=== PATIENT | female | born 1950 | race Caucasian/White ===

== ENCOUNTER 2018-11-14 15:40 | Emergency (ER) | payer OTHER, MEDICARE, MEDICAID, SELFPAY ==
[2018-11-14 15:43] VITALS: BP 115/67; PULSE 79; RESP 16; TEMP 37.2; O2SAT 99; BMI 20.7
--- NOTE | 2018-11-14 16:05 | RAD_ITS ---
STUDY: X-RAY CHEST REASON FOR EXAM: Female, 68 years old. Dehydration and altered mental status TECHNIQUE: AP portable COMPARISON: None. FINDINGS: Lungs are hyperinflated. There is a retrocardiac nodular density at left base measuring 1.8 x 1.5 cm. This appears relatively dense and likely represents granulomatous disease. There is no demonstrated pleural abnormality. Normal size heart. Normal mediastinum and devora. Normal visualized pulmonary arteries. Normal visualized aortic arch and descending thoracic aorta. Normal visualized thoracic spine. Normal visualized ribs, clavicles, and shoulders. There is no demonstrated abnormality of the visualized soft tissue structures of the upper abdomen. RAD/Chest 1 View (Portable) IMPRESSION: Mild hyperinflation. Left lower lobe nodule probable old granulomatous disease. No acute cardiopulmonary pathology Electronically Signed: North Jalloh MD at 16:32 EDT , Service support ,
[2018-11-14] MEDS: 0.9% Normal Saline 1,000 ML 1000 ML IV (17:10)
[2018-11-14] MEDS: Ondansetron 4 MG/2 ML Vial IV (17:11)
--- NOTE | 2018-11-14 17:21 | ED.DCSUM_ITS ---
History of Present Illness Chief Complaint: Nausea/Vomiting/Diarrhea Narrative: Patient presenting from the detention due to concern for dehydration and some confusion. 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 She is DNR comfort care. snf sent the patient in for evaluation due to some concern for the possibility of dehydration and states that she really has been well over the course of the last couple of days. Additional history was unable to be obtained, and the patient actually really was not complaining of any sort of complaints. Past Medical History - Allergies and Home Meds Allergies/Adverse Reactions: Allergies pseudoephedrine [From Sudafed] Adverse Reaction (Verified 11/14/18 15:42) Unknown Primary Care Physician: Norbert Hopper [Primary Care Provider] - Past Medical History: - - Dementia Smoking Status: Unknown if ever smoked Review of Systems ROS: Unable to Obtain Physical Exam Vital Signs/Narrative: Vital Signs Temp Pulse Resp BP Pulse Ox 11/14/18 15:43 98.9 F 79 16 115/67 99 Inital Vital Signs reviewed: Yes General: Well nourished, Well developed, No Acute Distress Head: Normocephalic, Atraumatic Eyes: Perrl, EOMI ENT: Moist mucous membranes, No rhinorrhea Neck: Supple Cardiovascular: Regular rate, Regular rhythm, No murmurs Respiratory: No distress, CTA bilaterally, Chest nontender Abdomen: Soft, Nondistended, Tender - Mild diffuse nonlocalizing Extremities: Nontender Skin: Normal color Neurological: Alert - Oriented only to person Psychological: Normal affect Diagnostic/Tx/Re-eval Chest X-Ray - ED: Read by ED Physician, Read by Radiologist, Chronic Changes - Medical Decision Making Patient presented from the detention due to concerns for dehydration. IV was established laboratory studies were obtained patient was given a fluid bolus. CBC unremarkable, chemistry does not show significant evidence of dehydration mild hyperkalemia 5.4 with hyperglycemia. No evidence of anion gap or acidosis. Chest x-ray by my personal review as well as radiology shows chronic changes. I was going to check a urinalysis on this patient, but due to her dementia we had some difficulty with gathering this. Nursing staff did inform me that this was very foul-smelling and the patient was complaining of some burning so the patient will be empirically placed on Keflex. She will be sent back to the detention. ED Disposition - Plan for ED Patient: Disposition: Home or Assisted Living Diagnosis: Dysuria Instructions: Urinary Tract Infections in Women Prescriptions: Cephalexin [Keflex] 500 mg PO Q6 #40 cap Prescription Printed Referrals: Norbert Hopper [Primary Care Provider] - 3-5 Days
[2018-11-14 17:22] LABS: Absolute Neutrophil Count 4.4 X10^3/uL (2.0-7.7); Basophil# 0.04 X10^3/uL; Basophil% 0.6 % (0-1); Eosinophil# 0.09 X10^3/uL; Eosinophils% 1.4 % (0-5); Hematocrit 41.8 % (37-47); Hemoglobin 13.5 g/dL (12.0-15.0); Lymphocyte % 25.7 % (19-41); Mean Corp Hgb Conc 32.3 g/dL (32-36); Mean Corpuscular Hgb 29.2 pg (27.0-32.0); Mean Corpuscular Volume 90.3 fL (81-99); Mean Platelet Vol. 11.4 fl (6.2-12.0); NRBC Flagged by Analyzer 0 % (0-5); Neutrophil # 4.37 X10^3/uL (2.7-7.7); Platelet Count 188 K/mm3 (150-450); RBC Distribution Width SD 46.5 fl (35.1-43.9); Red Blood Count 4.63 M/mm3 (4.2-5.4); White Blood Count 6.6 K/mm3 (4.4-11.0)
[2018-11-14 17:35] LABS: Anion Gap 5 (5-15); BUN 39 mg/dL (7-18); BUN/Creat Ratio 29.1 RATIO (10-20); Calcium,Total 9.8 mg/dL (8.5-10.1); Chloride 107 mmol/L (98-107); Creatinine, Serum 1.34 mg/dL (0.55-1.02); EST Glomerular Filtration Rate 42 mL/min (>60); Est Glom Filt Rate - Afr Amer 50 mL/min (>60); Estimated Creatinine Clearance 35.95 ml/min; Glucose 292 mg/dL (74-106); Potassium 5.4 mmol/L (3.5-5.1); Sodium Level 134 mmol/L (136-145)
--- NOTE | 2018-11-14 17:52 | CM.ED ---
Social Work Telephone call from patient daughter, Juliet Henry who is reporting to be health care power of employee benefits attorney. Juliet lives in [place] and is concerned that [facility] will be accepting patient back. This home health care social worker providing Juliet with other skilled nursing names in the area if needed. Juliet also educated that at this time it is not clear on whether or not patient will be admitted, Juliet voicing understanding. Paula phone: [phone]. Juventino PERKINS, EDEL
--- NOTE | 2018-11-14 18:43 | ED.RN ---
[facility] ETA 1 HOUR
--- NOTE | 2018-11-14 18:45 | ED.RN ---
[facility] ETA 20 MIN
== END 2018-11-14 19:21 | disposition home or self-care (01) ==
PROVIDERS: Emergency Provider Emergency Medicine; Family Provider Family Medicine; PCP Family Medicine
DX: R30.0 Dysuria (principal); E87.5 Hyperkalemia; R11.2 Nausea with vomiting, unspecified; R19.7 Diarrhea, unspecified; F10.97 Alcohol use, unspecified with alcohol-induced persisting dementia; Z66 Do not resuscitate
CPT/HCPCS: 71045; 80048; 85025; 96361; 96374; 99285; J7030; A4216; J2405